=== PATIENT | male | born 1995 | race Caucasian/White ===

== ENCOUNTER 2017-06-07 08:24 | Emergency (ER) | payer OTHER ==
[~2017-06-07] VITALS: Ht 177.8 cm; Wt 73.5 kg
[2017-06-07 08:26] VITALS: BP 150/78
[2017-06-07] MEDS ORDERED: RAMI2.5C PO (08:53)
== END 2017-06-07 09:23 | disposition home or self-care (01) ==
LOC: ED 09:17
DX: J02.0 Streptococcal pharyngitis (principal); I10 Essential (primary) hypertension
CPT/HCPCS: 99283